=== PATIENT | male | born 1955 | race Caucasian/White ===

== ENCOUNTER 2019-10-02 18:43 | Emergency (ER) | payer OTHER, MEDICAID ==
[~2019-10-02] VITALS: Ht 172.7 cm; Wt 78.9 kg
--- NOTE | 2019-10-02 18:55 | NUR ---
Patient ambulated to bed 7 with family. RN evaluating patient at bedside.
[2019-10-02 18:59] VITALS: BP 140/85
--- NOTE | 2019-10-02 19:11 | NUR ---
64 Y/0 MALE C/O RT FLANK PAIN X18 DAYS S/P COLONOSCOPY. PT STATES PAIN SINCE PROCEDURE. STATES 8/ CONSTANT SHARP PAIN TO RT FLANK, DOES NOT RADIATE. DENIES URINARY SYMPTOMS. DENIES TRAUMA TO AREA. PT SITTING IN BED IN COMFORTABLE POSITION, FAMILY AT BEDSIDE. CALM AND PLEASANT. MEDHX: DENIES ALLERGIES: DENIES
--- NOTE | 2019-10-02 19:26 | NUR ---
PT AMBULATED TO RESTROOM FOR URINE COLLECTION AT THIS TIME.
--- NOTE | 2019-10-02 19:31 | NUR ---
PT TO CT VIA WHEELCHAIR.
[2019-10-02 19:56] LABS: BASOPHILS % (AUTO) 0.8 % (0.0-2.0); EOSINOPHILS # (AUTO) 0.1 K/uL (0-0.4); EOSINOPHILS % (AUTO) 1.9 % (0.0-4.0); HEMATOCRIT 41.8 % (36-52); HEMOGLOBIN 14.5 g/dL (12.0-18.0); LYMPHOCYTES # (AUTO) 1.9 K/uL (2.0-11.5); MEAN CORPUSCULAR HEMOGLOBIN 31 pg (27-31); MEAN CORPUSCULAR HGB CONC 35 g/dL (33-37); MEAN CORPUSCULAR VOLUME 90.6 fL (80-94); MONOCYTES # (AUTO) 0.5 K/uL (0.8-1.0); MONOCYTES % (AUTO) 8.5 % (1.7-9.3); NEUTROPHILS # (AUTO) 3.5 K/uL (1.8-7.7); NEUTROPHILS % (AUTO) 57.8 % (42.2-75.2); PLATELET COUNT (AUTO) 182 K/uL (140-450); RED BLOOD CELL COUNT(AUTO) 4.61 MIL/uL (4.20-6.10); WHITE BLOOD COUNT (AUTO) 6.1 K/uL (4.8-10.8)
[2019-10-02 19:57] LABS: APPEARANCE,URINE CLEAR (CLEAR); BILIRUBIN,URINE NEGATIVE (NEGATIVE); BLOOD, URINE NEGATIVE (NEGATIVE); COLOR,URINE YELLOW (YELLOW); LEUKOCYTE ESTERASE ,URINE NEGATIVE (NEGATIVE); NITRITE, URINE NEGATIVE (NEGATIVE); UGLUCOSE NEGATIVE (NEGATIVE)
[2019-10-02 20:23] LABS: ALBUMIN 3.6 g/dL (3.4-5.0); ANION GAP 14.2 (8-16); CARBON DIOXIDE 25.8 mmol/L (21-32); CREATININE 1.1 mg/dL (0.7-1.3); TOTAL BILIRUBIN 0.5 mg/dL (0.0-1.0)
--- NOTE | 2019-10-02 21:09 | NUR ---
PT RESTING IN BED, TALKING TO FAMILY MEMBER. PT POSITIONED IN BED FOR COMFORT. BED LOCKED AND IN LOW POSITION. VSS. WILL CONTINUE TO MONITOR.
[2019-10-02 21:34] VITALS: BP 136/88
--- NOTE | 2019-10-02 21:35 | NUR ---
Patient discharged with v/s stable. Written and verbal after care instructions given and explained. Patient alert, oriented and verbalized understanding of instructions. Ambulatory with steady gait. All questions addressed prior to discharge. ID band removed. Patient advised to follow up with PMD. Rx of NAPROSYN given. Patient educated on indication of medication including possible reaction and side effects. Opportunity to ask questions provided and answered. PT DISCHARGED BY DR. ALVARADO
== END 2019-10-02 21:34 | disposition home or self-care (01) ==
LOC: MED 18:43
DX: G89.18 Other acute postprocedural pain (principal); R10.31 Right lower quadrant pain
CPT/HCPCS: 36415; 80053; 81003; 82150; 83690; 85025; 99284